=== PATIENT | female | born 1935 | race Caucasian/White ===

== ENCOUNTER 2016-10-30 15:50 | Emergency (ER) | payer MEDICARE ==
[~2016-10-30 15:50] MED LIST: AMB10 PO; AMITRIPTYLIN150 MG PO; ANTIDIARRHEAL PO; APRES25 PO; ASAB PO; ATEN50 PO; CALCIUM PO; CALTRA600D PO; CALTRATE PO; CELEXA20 PO; CIP5 PO; CLARIT10 PO; CO Q-10100 MG PO; COQ-10200 MG OR; COREG PO; COREG12 PO; COREG25 PO; D100 PO; DIGITEK0.125 MG PO; FERROUS PO; FISH OIL; FISH OIL1200 MG PO; FLAG500TAB PO; GLUCOV2.5 PO; IMOD PO; IRON325 MG PO; K500 PO; KEPPRA250 PO; L20 PO; LAN125 PO; LANTUS SC; LEVEMFLXPN SC; LEVOTHYROXIN125 MCG PO; LEVOTHYROXIN75 MCG PO; LEVOTHYROXINE PO; LORTAB 5 PO; LOTE20 PO; LOVASTATIN PO; MAG-OX PO; MAGOX4 PO; MELATONIN5 M1 PO; MEVACOR PO; MEVACOR40 MG PO; MUCINEX DM1 TAB OR; MULTIPLE VIT PO; MULTIVITAMI1 PO; MYRBETRIQ25 MG PO; NEUR300 PO; NORV5 PO; OMEGA 3550 MG PO; OS CAL; OS500+D PO; PLAVIX PO; PREV30 PO; PRILO PO; PRIM50B PO; REFRESH OP; REG5 PO; SONATA10 MG PO; SYN125 PO; TUMERIC PO; ULTRACET PO; ULTRAM50 PO; VIT D PO; VITAMIN D1000 UNI1 PO; VITAMIN D31000 UNIT PO; VITAMIN D400 UNI1 PO; VITE1000 PO; VOLTXR100 PO; [UNRECOGNIZED DRUG - OTHER]; [UNRECOGNIZED DRUG - OTHER] PO; [UNRECOGNIZED DRUG - OTHER] PO
[2017-03-08] MEDS ORDERED: PRILO PO (10:12)
[2017-03-08] MEDS ORDERED: VITAMIN D31000 UNIT PO (10:15)
[2017-03-08] MEDS ORDERED: LOFIB160 PO (10:15)
[2017-03-08] MEDS ORDERED: GLUCPH PO (10:16)
[2017-03-08] MEDS ORDERED: MELATONIN10 M2 PO (10:17)
== END 2016-10-30 16:37 | disposition home or self-care (01) ==
LOC: ER 15:50
DX: J02.9 Acute pharyngitis, unspecified (principal); I10 Essential (primary) hypertension; E11.9 Type 2 diabetes mellitus without complications; Z79.4 Long term (current) use of insulin; Z79.899 Other long term (current) drug therapy
CPT/HCPCS: 87070; 87880; 99283